=== PATIENT | female | born 1990 | race Caucasian/White ===

== ENCOUNTER 2025-02-08 10:51 | Outpatient (REF) | payer OTHER, SELFPAY ==
--- NOTE | ~2025-02-08 | XR_ITS ---
CLINICAL HISTORY: KIDNEY STONE 1 view abdomen Comparison: None provided Findings: No pneumoperitoneum or pneumatosis. No abnormal calcifications. No acute fractures. An IUD is noted IMPRESSION: Normal bowel gas pattern This document has been electronically signed by: Les Levine MD on 02/09/2025 10:51:20
--- OUTSIDE RECORDS SUMMARY | 2025-02-08 12:33 | XMS_ITS | Clinical Summary ---
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 occlusion or hemodynamically significant stenosis in the anterior cerebral arteries. No occlusion or hemodynamically significant stenosis in the bilateral intracranial vertebral arteries. No occlusion or hemodynamically significant stenosis in the basilar artery. Small soft plaque in the distal basilar artery without hemodynamically significant stenosis (series 6, image 169). No aneurysm. IMPRESSION: No intracranial large artery occlusion or hemodynamically significant stenosis. CT Angiography Neck W Contrast 3D Postprocessing COMPARISON: None FINDINGS: No occlusion, hemodynamically significant stenosis, or dissection in the bilateral common carotid arteries. No occlusion, hemodynamically significant stenosis, or dissection in the bilateral internal carotid arteries (0-49 percent). No occlusion, hemodynamically significant stenosis, or dissection in the bilateral vertebral arteries. No acute fracture. IMPRESSION: No occlusion or hemodynamically significant stenosis in the carotid or vertebral arteries. No dissection. This document has been electronically signed by: David Anderson MD on 01/23/2025 00:10:[address] PROCEDURES Edited Result - Final * hCG Qualitative (01/22/2025 6:17 PM EDT) [facility] hCG Qual Negative Negative 01/22/2025 9:52 PM EDT [facility] Blood Venous blood specimen / Unknown Venipuncture / Unknown 01/22/2025 6:17 PM EDT 01/22/2025 6:58 PM EDT Quinn DESHPANDE LAB BLOOD ORDERABLES Final Resul t Performing Organization Address City/[facility]/ZIP Co de Phone Number [facility] [address] [place] [address], [place] [phone] * (ABNORMAL) Magnesium (01/22/2025 6:17 PM EDT) [facility] Magnesium 1.8(L) 1.9 - 2.6 mg/dL LAB CHEMISTRY METHOD 01/22/2025 7:29 PM EDT [facility] Blood Venous blood specimen / Unknown Venipuncture / Unknown 01/22/2025 6:17 PM EDT 01/22/2025 6:58 PM EDT Gilda Benites DO LAB BLOOD ORDERABLES Nani l Result Performing Organization Address City/[facility]/ZIP Co de Phone Number [facility] [address] [place] [address], [place] [phone] * Lipid panel with reflex to direct LDL (11/30/2024 9:40 AM EDT) [facility] Cholesterol 124 0 - 200 mg/dL LAB CHEMISTRY METHOD 11/30/2024 1:08 PM EDT [facility] Triglycerides 68 0 - 150 mg/dL LAB CHEMISTRY METHOD 11/30/2024 1:08 PM EDT [facility] HDL 43 >=40 mg/dL LAB CHEMISTRY METHOD 11/30/2024 1:08 PM EDT [facility] LDL Calculated 67 0 - 100 mg/dL LAB CHEMISTRY METHOD 11/30/2024 1:08 PM EDT [facility] VLDL Cholesterol Jerry 13.6 mg/dL LAB CHEMISTRY METHOD 11/30/2024 1:08 PM [facility] Non HDL Chol. (LDL+VLDL) 81 <145 mg/dL LAB CHEMISTRY METHOD [facility]/30[facility]24 [facility] Chol/HDL Ratio 2.9 0.0 - 4.4 LAB CHEMISTRY METHOD 11/30/2024 1:08 PM [facility] Blood Venous blood specimen / Unknown Venipuncture / Unknown 11/30/2024 9:40 AM EDT 11/30/2024 9:40 AM EDT Jes DESHPANDE LAB BLOOD ORDERABLES Final Re sult [facility] [address] [place] [address], [place] [phone] * (ABNORMAL) Comprehensive metabolic panel (11/30/2024 9:40 AM EDT) Sodium 140 133 - 145 mmol/L LAB CHEMISTRY METHOD 11/30/2024 1:08 PM [facility] Potassium 4.0 3.5 - 5.5 mmol/L LAB CHEMISTRY METHOD 11/30/2024 1:08 PM [facility] Chloride 106 96 - 110 mmol/L LAB CHEMISTRY METHOD 11/30/2024 1:08 PM [facility] CO2 28 21 - 32 mmol/L LAB CHEMISTRY METHOD 11/30/2024 1:08 PM [facility] Anion Gap 6 3 - 11 LAB CHEMISTRY METHOD 11/30/2024 1:08 PM [facility] Glucose 84 70 - 100 mg/dL LAB CHEMISTRY METHOD 11/30/2024 1:08 PM [facility] BUN 9 5 - 25 mg/dL LAB CHEMISTRY METHOD 11/30/2024 1:08 PM [facility] Creatinine 0.56 0.50 - 1.10 mg/dL LAB CHEMISTRY METHOD 11/30/2024 1:08 PM [facility] eGFR 123 >=60 mL/min/1. 73m2 LAB CHEMISTRY METHOD 11/30/2024 1:08 PM [facility] Comment:Calculation based on the Chronic Kidney Disease Epidemiology Collaboration (CKD-EPI) equation refit without adjustment for race. BUN/Creatinine Ratio 16.1 LAB CHEMISTRY METHOD 11/30/2024 1:08 PM [facility] Calcium 9.4 8.5 - 10.5 mg/dL LAB CHEMISTRY METHOD 11/30/2024 1:08 PM [facility] AST (SGOT) 14 10 - 42 unit/L LAB CHEMISTRY METHOD 11/30/2024 1:08 PM [facility] ALT (SGPT) 19 10 - 60 unit/L LAB CHEMISTRY METHOD 11/30/2024 1:08 PM [facility] Alkaline Phosphatase 58 42 - 121 unit/L LAB CHEMISTRY METHOD 11/30/2024 1:08 PM [facility] Total Protein 8.1(H) 6.0 - 8.0 g/dL LAB CHEMISTRY METHOD 11/30/2024 1:08 PM [facility] Albumin 4.4 3.2 - 5.0 g/dL LAB CHEMISTRY METHOD 11/30/2024 1:08 PM [facility] Total Bilirubin 1.6(H) 0.0 - 1.4 mg/dL LAB CHEMISTRY METHOD 11/30/2024 1:08 PM [facility] Blood Venous blood specimen / Unknown Venipuncture / Unknown 11/30/2024 9:40 AM EDT 11/30/2024 9:40 AM EDT Jes DESHPANDE LAB BLOOD ORDERABLES Final Re sult [facility] [place] [facility] [address] [place] [address], [place] [phone] * Cervical Cancer Screening: HPV (09/19/2018) Cervical Cancer Screening: HPV no interpretation , abstracted Historical Provider HEALTH MAINTENANCE Final Result from Last 3 Months or Most Recently Relevant to Health [place] [id number] [facility] Advance Directives * Full Code - Default (Latest Code Status on File) Date Activated Date Inactivated Comments 01/23/2025 1:28 AM 01/23/2025 8:41 PM This is order is used when code status has not been discussed with the patient, or code status is otherwise unknown/unconfirmed To update the patient's code status, place a code status order. Do not modify or discontinue any currently active code status orders. Care Teams Protective Signal Operations Supervisor Relationship Specialty Start Date End Date Janeth Roberts MD [address] [place] [address] [place] [address] PCP - General Internal Medicine 07/04/21
== END 2025-02-08 10:52 | disposition home or self-care (01) ==
LOC: HO.XRAY 10:51
PROVIDERS: PCP Internal Medicine; Visit Provider Psychiatry & Neurology Neurology
DX: N20.0 Calculus of kidney (principal); Z97.5 Presence of (intrauterine) contraceptive device
CPT/HCPCS: 74018

== ENCOUNTER → 2025-02-08 11:10 | Outpatient (BNV) | payer OTHER, SELFPAY | PROVIDERS: PCP Internal Medicine; Visit Provider Radiology Diagnostic Radiology | DX: N20.0 Calculus of kidney (principal) | CPT/HCPCS: 74018 ==

== ENCOUNTER 2025-03-07 15:15 | Outpatient (AMB) | payer OTHER, SELFPAY ==
--- NOTE | 2025-03-07 15:23 | A.OFFVIS_ITS ---
Intake Visit Reasons: 4 WEEKS BG CLACIFICATION Allergies No Known Allergies Allergy (Verified 03/05/25 13:03) Medication List - Last Reconciled 03/07/25 by Elle Tavarez MD sertraline 25 mg PO DAILY HPI Comments Details: This is a generally healthy 34-year-old woman with a history of mild anxiety and depression, who developed constant headaches for about 10 days in December 2024.? She went to the emergency room at [facility] and had a CT scan and CT angiogram which were negative except for extensive bilateral?basal ganglia calcification, particularly involving the globus pallidus.? An MRI was also done.? Her parathormone, calcium and phosphate levels were normal.? TSH was borderline high with a normal T4.? Remainder of her labs were unremarkable.? She has had no neurological symptoms in her life, no neuropsychiatric problems, or movement disorder.? 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 Family history on her father's side is unknown.? Her mother had a CAT scan of the head done recently, but we don't have a report on that.? The patient has had no kidney stones.? Her headaches have resolved and she feels back to normal. She has a probable genetic disorder . Negative endocrine w/u. 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 Normal endocrine w/u. KUB normal with no renal stones [facility] Medical History (Updated 03/07/25 @ 15:34 by Elle Tavarez MD) Other specified degenerative diseases of basal ganglia Kidney stone Review of Systems Const Details: ?Sleep:? Difficulty getting to sleepdenies.? Difficulty maintaining sleepdenies?.? Urge to move legsdenies.? Teeth grindingdenies.? Shouting or Kicking during sleep denies.? Abnormal behavior during sleepdenies.? Excessive sleepdenies.? Snoring denies.? Daytime sleepinessdenies. ???General/Constitutional:? Change in appetitedenies.? Chillsdenies.? Fatiguedenies.? Feverdenies.? Weight gaindenies.? Weight lossdenies. ???Ophthalmologic:? Blurred visiondenies.? Diminished visual acuitydenies. ???ENT:? Stuffinessdenies.? Decreased hearingdenies.? Dry mouthdenies.? Ear paindenies.? Nosebleeddenies.? Ringing in the earsdenies.? Sinus paindenies.? Sore throat denies.? Swollen glandsdenies. ???Endocrine:? Cold intolerancedenies.? Excessive thirstdenies.? Frequent urinationdenies.? Heat intolerancedenies. ???Respiratory:? Shortness of breathdenies.? Chest paindenies.? Coughdenies. ???Breast:? Breast lumpdenies.? Nipple dischargedenies. ???Cardiovascular:? Chest pain at restdenies.? Chest pain with exertiondenies.? Claudicationdenies .? Dizzinessdenies.? Fluid accumulation in the legsdenies.? Irregular heartbeat denies.? Palpitationsdenies. ???Gastrointestinal:? Abdominal paindenies.? Constipationdenies.? Diarrheadenies.? Difficulty swallowingdenies.? Heartburndenies.? Nauseadenies.? Rectal bleedingdenies. ???Hematology:? Easy bruisingdenies.? Prolonged bleedingdenies. ???Genitourinary:? Frequent urinationdenies.? Urgencydenies.? Incontinencedenies.? Erectile Dysfunctiondenies. ???Musculoskeletal:? Neck paindenies.? Back paindenies.? Muscle achesdenies.? Painful jointsdenies.? Sciaticadenies.? Weaknessdenies. ???Podiatric:? Difficulty walkingdenies.? Foot numbnessdenies. ???Neurologic:? Difficulty swallowingdenies.? Balance difficultydenies.? Coordinationnormal.? Difficulty speakingdenies.? Dizzinessdenies.? Faintingdenies.? Gait abnormality denies.? Headacheadmits.? Loss of strengthdenies.? Loss of use of extremityd enies.? Low back paindenies.? Memory lossdenies.? Seizuresdenies.? Ticsdenies.? Tingling/Numbnessdenies.? Transient loss of visiondenies.? Tremordenies. ???Psychiatric:? Anxietyadmits.? Auditory/visual hallucinationsdenies.? Delusionsdenies.? Depressed mooddenies.? Stressorsadmits.? Substance abusedenies.? Suicidal thoughtsdenies. Physical Exam Neuro Other: Neurological: Abnormal neurological findings:??none.?Mental Status:??alert and oriented X 3,?Normal attention, orientation, memory and affect.?Cranial Nerves:??Pupils are equal, round and reactive to light. Fundoscopy shows normal disc bilaterally. External occular muscles are intact. Visual dhillon are full, no ptosis. Face is symmetrical, no facial weakness or droop. Facial sensations are normal. Tongue protrudes in midline. Palate elevates symmetrically. Shoulder shrugging is normal..?Motor Examination:??Normal muscle tone, bulk and strength,?No atrophy or fasciculations,?No drift of the extended upper extremities,?Deep tendon reflexes are 2+?,?Plantars are flexor?.?Motor Strength:?Proximal Muscles (out of 5):5Distal Muscles (out of 5):5Neck Flexors (out of 5):5Neck Extensors (out of 5):5Deltoid (out of 5):5Biceps (out of 5):5Triceps (out of 5):5Serratus Anterior (out of 5):5Wrist Extensors (out of 5):5APB (out of 5):5Finger Spread (out of 5):5Ileopsoas (out of 5):5Quadriceps (out of 5):5Hamstrings (out of 5):5Tibialis Anterior (out of 5):5Peronei (out of 5):5EDB (out of 5):5Gastrocnemius (out of 5):5Straight Leg Raising:??90 degrees.?Sensory Exam:??Normal light touch, temperature, pinprick, vibration and joint-position sensations?,?Rhomberg sign is absent.?Coordination:??no ataxia,?no titubation,?ikwyzq-[id number]-toxd, rxps-ylyb-ffou test and rapid alternating movements were normal.?Gait Exam:??Within normal limits.?Cerebellar Signs:??Vldyeh-mo-affb and hydw-hq-hssb is normal,?no dysdiadochokinesia?.?Extrapyramidal System:??No tremor, rigidity with normal facial expressions,?No bradykinesia, no bradyphrenia. Normal arm swing and posture. No propulsion or retropulsion.?Speech:??Normal,?no dysphasia or dysarthria..? Mini Mental Status Exam: Level of Consciousness:??Alert.?Orientation:??Knows correct year, month, date, day and season,?Knows correct city, county and state. Knows correct location and floor.?Registration:??Able to register 3 objects.?Attention:??Serial 7's performed accurately.?Recall:??Able to recall 3 out of 3 objects.?Language:??Normal spontaneous speech, fluency, repetition,naming, comprehension, reading and writing.?Total Score:??30/30.? General Examination: GENERAL APPEARANCE:??normal,?in no acute distress.?HEAD:??normocephalic,?atraumatic.?EYES:??sclera non- icteric,?conjunctiva clear.?EARS:??auditory canal clear,?tympanic membrane intact, clear.?NOSE:??no lesions.?ORAL CAVITY:??gums normal,?mucosa moist,?no lesions.?THROAT:??clear.?NECK/THYROID:??no cervical lymphadenopathy,?thyroid normal,?neck supple, full range of motion,?no carotid bruit.?SKIN:??no r ashes,?no significant birthmarks.?HEART:??S1, S2 normal,?no murmurs.?LUNGS:??clear anteriorly and posteriorly.?CHEST:??no gross rib deformity,?clear to auscultation.?BACK:??normal exam of spine.?EXTREMITIES:??no edema.?PERIPHERAL PULSES:??normal.?PSYCH:??alert, oriented,?cognitive function intact,?cooperative with exam.? Assessment & Plan Assessment & Plan (1) Other specified degenerative diseases of basal ganglia: Code(s): G23.8 - Other specified degenerative diseases of basal ganglia Category: Medical Plan Idiopathic or genetic basal ganglia calcification bilaterally without any endocrine or metabolic abnormality. Asymptomatic. Nothing else to be done. Discussed possibilities and future symptoms to watch for, Reviewed CT images with patient. Coding Level of Care Code Est Pt Level 4 (74274) Diagnoses Other specified degenerative diseases of basal ganglia G23.8
--- OUTSIDE RECORDS SUMMARY | 2025-03-07 15:35 | XMS_ITS | Clinical Summary ---
Author Organization [facility] [address] [place] [address] [address] [place] [address] Phone Care Team Providers Care [employer] Installer Name Role Phone Janeth Roberts MD Primary Care Provider [phone] Allergies No known active allergies Medications levonorgestreL (MIRENA) 21 mcg/24hr (up to 8 yrs) 52 mg IUD 1 Device (1 each total) by intrauterine route 1 (one) time. Active sertraline (ZOLOFT) 50 mg tablet Take 1 tablet (50 mg total) by mouth 1 (one) time each day. 90 each 03/01/20 25 Active sertraline (ZOLOFT) 25 mg tablet Take 1 tablet (25 mg total) by mouth 1 (one) time each day. 30 each 1 01/30/20 25 025 Discontinued Active Problems Problem Noted Date Diagnosed Date Subclinical hypothyroidism 01/29/2025 Anxiety 01/29/2025 New daily persistent headache 01/23/2025 Calcification of basal ganglia (CMS/HCC V24, CMS /HCC V28) 01/23/2025 Herpes simplex 11/30/2024 Allergic rhinitis 08/08/2024 Anemia 08/08/2024 Diverticulitis 08/08/2024 Encounters Date Type Department Care Team Description 03/01/2025 9:30 AM EDT Office Visit Adult Medicine [facility] [address] [place] [address] Jes Morocho PA Anxiety (Primary Dx) 01/29/2025 10:30 AM EDT Office Visit [address] [phone] Janeth Roberts MD New daily persistent headache (Primary Dx); Calcification of basal ganglia (CMS/HCC V24, CMS/HCC V28); Subclinical hypothyroidism; Anxiety 01/23/[address] [phone] Janeth Roberts MD Hospital Follow-up 01/22/2025 5:48 PM EDT - 01/23/2025 6:41 PM EDT Hospital Encounter [facility] [address] [place] [address] Mariano Andrews MD Santoyo-Pacheco, Omar D, MD New daily persistent headache (Primary Dx); Cranial nerve VII palsy Discharge Disposition: Home or Self Care 01/22/2025 Nurse Triage [address] [phone] Janeth Roberts MD Migraine from Last 3 Months Immunizations Name Administration Dates Next Due DTP 05/07/1995, 1,12/05/1990,07/07,03/06/1990 DTaP (Infanrix) 6wks to less than 7yo ,08/06/1991,12/05/1990,07/07,03/06/1990 LQoT-NUH-GQY (Pentacel) 2mo to less than 5yo 05/07/1991,12/05/1990 HPV, Quadrivalent 09/17/2008,05/18/2008,03/07/20 08 Hepatitis B (Nswsbgp-V-Nsnxr , Recombivax HB-Adult) 19yo and older 12/18/1998,08/05/1998,06/26/1998 [...] ed Within the last 3 months, ho zoraida many times did you visit the emergency [...] care for your loved ones. For example, early childhood teacher or elderly care for an older adult? 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 on file Not o n file Obstetrics History Last Filed Vital Signs Vital Sign Reading Time Taken Comments Blood Pressure 117/78 03/01/2025 9:17 AM EDT Pulse 77 03/01/2025 9:17 AM EDT Temperature 36.7 C (98.1 F) 03/01/2025 9:17 AM EDT Respiratory Rate 18 03/01/2025 9:17 AM EDT Oxygen Saturation 99% 01/29/2025 10:27 AM EDT Inhaled Oxygen Concentration - - Weight 61.7 kg (136 lb) 03/01/2025 9:17 AM EDT Height 157.5 cm (5' 2 ) 03/01/2025 9:17 AM EDT Body Mass Index 24.87 03/01/2025 9:17 AM EDT Plan of Treatment Upcoming Encounters Date Type Department Care Team (Late st Contact Info) Description 04/26/2025 9:30 AM EDT Office Visit [address] [phone] Janeth Roberts MD [address], [place] 12/03/2025 9:00 AM EDT Office Visit [address] [phone] Janeth Roberts MD [address], [place] [phone] Health Maintenance Due Date Last Done Comments Cervical Cancer Screening: Pap Smear 09/19/2021 09/19/2018, 09/19/2018 HIV Screening 08/01/2022 Hepatitis C Screening 08/01/2022 COVID-19 Vaccine ( season) 2024 10/16/2023, 10/16/2020, 09/18/2020 Influenza Vaccine (#1) 2025 , 04/29/2023, 07/11/2021, Additional history exists DTaP,Tdap,and Td [...] 5 Years) and At-Risk Patients (6 to 49 Years) Aged Out No longer eligible based [...] AND DIFFERENTIAL STAT 01/22/2025 6:17 PM EDT LIPID PANEL WITH REFLEX TO DIRECT LDL Routine 11/30/2024 9:40 AM EDT Lipid screening HM HPV Routine 09/19/2018 from Last 3 [...] Signed Date: 01/23/2025 13:18 ET Workstation ID: [id number] Transcribed By: Self Edit Transcribed Date: 01/23/2025 [...] Signed Date: 01/23/2025 13:18 ET Workstation ID: [id number] Transcribed By: Self Edit Transcribed Date: 01/23/2025 13:11 ET Mariama DESHPANED IMG MRI PROCEDURES Nani l Result * (ABNORMAL) Thyroid stimulating hormone with reflex to free t4 and free t3 (01/23/2025 3:55 AM EDT) Pathologist [facility] TSH 7.54(H) 0.40 - 4.00 mcIU/mL LAB CHEMISTRY METHOD 01/23/2025 5:27 PM EDT [facility] Blood Venous blood specimen / Unknown Venipuncture / Unknown 01/23/2025 3:55 AM EDT 01/23/2025 4:01 AM EDT Wilber Carrero MD LAB BLOOD ORDERABLES F inal Result Performing Organization Address [facility]/ZIP Co de Phone Number [facility] [address] [place] [address], [place] [phone] * Free thyroxine with reflex to free triiodothyronine (01/23/2025 3:55 AM EDT) [facility] Free T4 1.32 0.70 - 1.80 ng/dL LAB CHEMISTRY METHOD 01/23/2025 6:22 PM EDT [facility] Blood Venous blood specimen / Unknown Venipuncture / Unknown 01/23/2025 3:55 AM EDT 01/23/2025 4:01 AM EDT us Wilber Carrero MD LAB BLOOD ORDERABLES F inal Result Performing Organization Address City/[facility]/ZIP Co de Phone Number [facility] [address] [place] [address], [place] [phone] * (ABNORMAL) CBC auto differential (01/23/2025 3:55 AM EDT) Only the most recent of2 resultswithin the time period is included. Pathologist [facility] WBC 6.6 4.8 - 10.8 K/mcL LAB HEMETOLOGY METHOD 01/23/2025 4:17 AM [facility] RBC 4.20 3.80 - 4.80 M/mcL LAB HEMETOLOGY METHOD 01/23/2025 4:17 AM [facility] Hemoglobin 12.2 11.5 - 16.0 g/dL LAB HEMETOLOGY METHOD 01/23/2025 4:17 AM [facility] Hematocrit 37.3 35.0 - 47.0 % LAB HEMETOLOGY METHOD 01/23/2025 4:17 AM [facility] MCV 89.2 79.0 - 98.0 FL LAB HEMETOLOGY METHOD 01/23/2025 4:17 AM [facility] MCH 29.2 27.0 - 32.0 pcg LAB HEMETOLOGY METHOD 01/23/2025 4:17 AM [facility] MCHC 32.7 32.0 - 37.0 g/dL LAB HEMETOLOGY METHOD 01/23/2025 4:17 AM [facility] RDW 11.9 11.0 - 15.0 % LAB HEMETOLOGY METHOD 01/23/2025 4:17 AM [facility] Platelets 206 130 - 400 K/mcL LAB HEMETOLOGY METHOD 01/23/2025 4:17 AM [facility] MPV 8.6 7.0 - 11.0 FL LAB HEMETOLOGY METHOD 01/23/2025 4:17 AM [facility] NRBC 0.0 <1.0 % LAB HEMETOLOGY METHOD 01/23/2025 4:17 AM [facility] NRBC Absolute 0.00 <0.10 K/mcL LAB HEMETOLOGY METHOD 01/23/2025 4:17 AM [facility] Neutrophils Relative 82.3 % LAB HEMETOLOGY METHOD 01/23/2025 4:17 AM [facility] Lymphocytes Relative 14.3 % LAB HEMETOLOGY METHOD 01/23/2025 4:17 AM [facility] Monocytes Relative 2.7 % LAB HEMETOLOGY METHOD 01/23/2025 4:17 AM [facility] Eosinophils Relative 0.2 % LAB HEMETOLOGY METHOD 01/23/2025 4:17 AM [facility] Basophils Relative 0.3 % LAB HEMETOLOGY METHOD 01/23/2025 4:17 AM [facility] Immature Granulocytes Relative 0.2 % LAB HEMETOLOGY METHOD 01/23/2025 4:17 AM [facility] Neutrophils Absolute 5.40 1.50 - 7.00 K/mcL LAB HEMETOLOGY METHOD 01/23/2025 4:17 AM [facility] Lymphocytes Absolute 0.94(L) 1.00 - 5.00 K/mcL LAB HEMETOLOGY METHOD 01/23/2025 4:17 AM [facility] Monocytes Absolute 0.18(L) 0.20 - 1.00 K/mcL LAB HEMETOLOGY METHOD 01/23/2025 4:17 AM [facility] Eosinophils Absolute 0.01 0.00 - 0.50 K/mcL LAB HEMETOLOGY METHOD 01/23/2025 4:17 AM [facility] Basophils Absolute 0.02 0.00 - 0.20 K/mcL LAB HEMETOLOGY METHOD 01/23/2025 4:17 AM [facility] Immature Granulocytes Absolute 0.01 0.00 - 0.03 K/mcL LAB HEMETOLOGY METHOD 01/23/2025 4:17 AM [facility] Blood Venous blood specimen / Unknown Venipuncture / Unknown 01/23/2025 3:55 AM EDT 01/23/2025 4:00 AM EDT Mariano Andrews MD LAB BLOOD ORDERABLES Nani l Result [facility] [address] [place] [address], [place] [phone] * Triiodothyronine free (01/23/2025 3:55 AM EDT) [facility] T3, Free 373 230 - 420 pcg/dL LAB CHEMISTRY METHOD 01/23/2025 7:35 PM EDT [facility] Blood Venous blood specimen / Unknown Venipuncture / Unknown 01/23/2025 3:55 AM EDT 01/23/2025 4:01 AM EDT us Wilber Carrero MD LAB BLOOD ORDERABLES F inal Result Performing Organization Address City/[facility]/ZIP Co de Phone Number [facility] [address] [place] [address], [place] [phone] * Phosphorus (01/23/2025 3:55 AM EDT) [facility] Phosphorus 3.6 2.5 - 4.5 mg/dL LAB CHEMISTRY METHOD 01/23/2025 4:25 PM EDT [facility] Blood Venous blood specimen / Unknown Venipuncture / Unknown 01/23/2025 3:55 AM EDT 01/23/2025 4:01 AM EDT us Wilber Carrero MD LAB BLOOD ORDERABLES F inal Result [facility] [address] [place] [address], [place] [phone] * Parathyroid hormone intact (01/23/2025 3:55 AM EDT) [facility] PTH 44.5 18.5 - 88.0 pcg/mL LAB CHEMISTRY METHOD 01/23/2025 3:30 PM EDT [facility] Blood Venous blood specimen / Unknown Venipuncture / Unknown 01/23/2025 3:55 AM EDT 01/23/2025 4:01 AM EDT Wilber Carrero MD LAB BLOOD ORDERABLES F inal Result [facility] [address] [place] [address], [place] [phone] * (ABNORMAL) Basic metabolic panel (01/23/2025 3:55 AM EDT) Only the most recent of2 resultswithin the time period is included. [facility] Sodium 138 133 - 145 mmol/L LAB CHEMISTRY METHOD 01/23/2025 4:21 AM [facility] Potassium 3.8 3.5 - 5.5 mmol/L LAB CHEMISTRY METHOD 01/23/2025 4:21 AM [facility] Chloride 108 96 - 110 mmol/L LAB CHEMISTRY METHOD 01/23/2025 4:21 AM [facility] CO2 25 21 - 32 mmol/L LAB CHEMISTRY METHOD 01/23/2025 4:21 AM [facility] Anion Gap 5 3 - 11 LAB CHEMISTRY METHOD 01/23/2025 4:21 AM [facility] Glucose 114(H) 70 - 100 mg/dL LAB CHEMISTRY METHOD 01/23/2025 4:21 AM [facility] BUN 5 5 - 25 mg/dL LAB CHEMISTRY METHOD 01/23/2025 4:21 AM [facility] Creatinine 0.48(L) 0.50 - 1.10 mg/dL LAB CHEMISTRY METHOD 01/23/2025 4:21 AM [facility] eGFR 127 >=60 mL/min/1. 73m2 LAB CHEMISTRY METHOD 01/23/2025 4:21 AM EDT [facility] Comment:Calculation based on the Chronic Kidney Disease Epidemiology Collaboration (CKD-EPI) equation refit without adjustment for race. BUN/Creatinine Ratio 10.4 LAB CHEMISTRY METHOD 01/23/2025 4:21 AM EDT [facility] Calcium 8.3(L) 8.5 - 10.5 mg/dL LAB CHEMISTRY METHOD 01/23/2025 4:21 AM EDT [facility] Blood Venous blood specimen / Unknown Venipuncture / Unknown 01/23/2025 3:55 AM EDT 01/23/2025 4:01 AM EDT us Mariano Andrews MD LAB BLOOD ORDERABLES Nani enamorado Result [facility] [address] [place] [address], [place] [phone] * CT Angio Head/Neck wo and/or w [...] * hCG Qualitative (01/22/2025 6:17 PM EDT) [facility] hCG Qual Negative Negative 01/22/2025 9:52 PM EDT [facility] Blood Venous blood specimen / Unknown Venipuncture / Unknown 01/22/2025 6:17 PM EDT 01/22/2025 6:58 PM EDT Quinn DESHPANDE LAB BLOOD ORDERABLES Final Resul t [facility] [address] [place] [address], * (ABNORMAL) Magnesium (01/22/2025 6:17 PM EDT) Pathologist [facility] Magnesium 1.8(L) 1.9 - 2.6 mg/dL LAB CHEMISTRY METHOD 01/22/2025 7:29 PM EDT [facility] Blood Venous blood specimen / Unknown Venipuncture / Unknown 01/22/2025 6:17 PM EDT 01/22/2025 6:58 PM EDT us Gilda Benites DO LAB BLOOD ORDERABLES Nani l Result [facility] [address] [place] [address], [place] [phone] * Lipid panel with reflex to direct LDL (11/30/2024 9:40 AM EDT) Cholesterol 124 0 - 200 mg/dL LAB CHEMISTRY METHOD 11/30/2024 1:08 PM EDT [facility] Triglycerides 68 0 - 150 mg/dL LAB CHEMISTRY METHOD 11/30/2024 1:08 PM EDT [facility] HDL 43 >=40 mg/dL LAB CHEMISTRY METHOD 11/30/2024 1:08 PM EDT [facility] LDL Calculated 67 0 - 100 mg/dL LAB CHEMISTRY METHOD 11/30/2024 1:08 PM EDT [facility] VLDL Cholesterol Jerry 13.6 mg/dL LAB CHEMISTRY METHOD 11/30/2024 1:08 PM EDT [facility] Non HDL Chol. (LDL+VLDL) 81 <145 mg/dL LAB CHEMISTRY METHOD 11/30/2024 1:08 PM EDT [facility] Chol/HDL Ratio 2.9 0.0 - 4.4 LAB CHEMISTRY METHOD 11/30/2024 1:08 PM EDT [facility] Blood Venous blood specimen / Unknown Venipuncture / Unknown 11/30/2024 9:40 AM EDT 11/30/2024 9:40 AM EDT us Jes DESHPANDE LAB BLOOD ORDERABLES Final Re sult [facility] [place] [facility] [address] [place] [address], * Cervical Cancer Screening: HPV (09/19/2018) Pathologist [facility] Cervical Cancer Screening: HPV no interpretation , abstracted us Historical Provider MD HEALTH MAINTENANCE Final Result from Last 3 Months or Most Recently Relevant to [place] [phone] [facility] Advance Directives * Full Code - [...] currently active code status orders. Care Teams [employer] Installer Relationship Specialty Start Date End Date Janeth Roberts MD [address] [place] [id number] PCP - General Internal Medicine 07/04/21
== END 2025-03-07 15:33 | disposition home or self-care (01) ==
LOC: HO.HSM 15:15
PROVIDERS: PCP Internal Medicine; Referring Provider Internal Medicine; Visit Provider Psychiatry & Neurology Neurology
DX: G23.8 Other specified degenerative diseases of basal ganglia (principal)
CPT/HCPCS: 99214